=== PATIENT | male | born 1945 | race Caucasian/White ===

== ENCOUNTER 2019-02-04 08:06 | Outpatient (CLI) | payer MEDICARE, BC ==
--- NOTE | 2019-02-04 10:30 | RAD ---
FPROCEDURE: Fluoroscopic right shoulder arthrogram INDICATION: Right shoulder pain COMPARISON: None TECHNIQUE: Informed consent was obtained. Preprocedure erp implementation consultant images were obtained of the right should er. The patient was placed supine on the fluoroscopic table. A timeout was performed. Site overlying the right shoulder was prepped and draped in the usual sterile fashion. Buffered 1% lidocaine was adm inistered into the overlying subcutaneous tissues. Under fluoroscopic guidance, a 22-gauge spinal nee dle was guided down into the right glenohumeral joint. Confirmation of needle localization was confir med by injecting 1 cc of the buffered 1% lidocaine. Following this 10of the dilute Isovue solution CT Mix: 30 mL total volume consisting of 20 mL normal saline, 5 mL Isovue 300, 5 mL 1% Lidocaine, 0.1 mL Epi 1 mg/ml) was injected. Contrast was visualized within the right glenohumeral joint with fluoro scopy. The needle was removed. The injection site was then cleansed and bandage. The patient tolerate d the injection without difficulty. Fluoroscopic time: 0.8minutes Fluoroscopic dose: 47.3mcg/sq m FINDINGS: No acute osseous abnormality. Moderate right AC joint osteoarthrosis. IMPRESSION: Successful right shoulder arthrogram. The patient is to have a follow-up CTarthrogram of the right shoulder. Please see this report for further details.
--- NOTE | 2019-02-04 13:30 | CT ---
FCT ARTHROGRAM OF THE RIGHT SHOULDER: INDICATION: Right shoulder pain. COMPARISON: MR of the right shoulder dated November 28, 2011. TECHNIQUE: Multiple CT images were obtained of the right shoulder following intra-articular administr ation of a dilute Isovue solution. Please see the separately dictated right shoulder arthrogram for d etails concerning the injection technique. COMPARISONS: Comparisons are made with the prior MRI of the right shoulder dated November 28, 2011. FINDINGS: The previously seen full-thickness tear involving the posterior supraspinatus appears to be en potentially intervally repaired. No discrete tear is grossly evident within this location. There i s a new full-thickness tear involving the anterior to mid supraspinatus measuring 1.4 x 0.7 cm in its greatest AP and mediolateral dimensions. The supraspinatus tendon appears mild to moderately thin wh ich may be related to tendinosis. Again seen is a complete disruption of the intra-articular biceps t endon with distal retraction. The high-grade partial thickness articular surface tear with intratendi nous delamination involving the cranial to mid subscapularis persists. There is moderate AC joint ost eoarthrosis. No muscular atrophy is evident. There is a type II acromion. No os acromiale is present. Incidental note is made of calcified lymph nodes within the mediastinum. The visualized right lung is clear. IMPRESSION: 1. Full-thickness rotator cuff tear involving the anterior mid supraspinatus. The previously seen ful l-thickness tear involving the mid to posterior supraspinatus is not well-defined and may have been i ntervally surgically repaired. Recommend correlation with the patient's operative history. There is m oderate tendinosis of the supraspinatus. 2. Complete disruption of the intra-articular biceps tendon with distal retraction. 3. Stable high-grade partial thickness articular surface tear involving the cranial mid subscapularis . 4. Moderate acromioclavicular joint osteoarthrosis. Transcribed Date/Time: 02/04/2019 1:29 PM
== END 2019-02-04 08:07 | disposition home or self-care (01) ==
LOC: RAD 08:06
PROVIDERS: ATTEND Orthopaedic Surgery
DX: M25.511 Pain in right shoulder (principal); M75.101 Unspecified rotator cuff tear or rupture of right shoulder, not specified as traumatic; M19.011 Primary osteoarthritis, right shoulder
CPT/HCPCS: 23350